=== PATIENT | male | born 1995 | race Caucasian/White ===

== ENCOUNTER → 2017-10-23 | Outpatient (CLI) | payer SELFPAY | END | disposition home or self-care (01) | LOC: LABWHC1 16:22 | PROVIDERS: ATTEND Family Medicine | DX: Z13.88 Encounter for screening for disorder due to exposure to contaminants (principal) | CPT/HCPCS: 36415; 83655 ==

== ENCOUNTER 2018-08-25 16:49 | Emergency (ER) | payer OTHER ==
[2018-08-25 17:44] VITALS: BP 134/76; PULSE 69; RESP 18; TEMP 98.3
--- NOTE | 2018-08-25 18:09 | ED ---
Upper Extremity HPI - General Chief Complaint: Extremity Injury, Upper Stated Complaint: rt hand injury Source: patient, RN notes reviewed, old records reviewed Mode of arrival: ambulatory Limitations: no limitations - History of Present Illness Initial Comments: Patient is a 22-year-old male presents emergency department today for evaluation for right hand pain. Patient ports that he had his hand smashed between a dryer in the wall while moving it downstairs. Patient reports he is right-handed. He complains of pain over his fourth and fifth metacarpal. Patient states painful for him to make him full fist. He states is normal sensation distal fingers Patient denies any elbow pain. He denies any lacerations over the hand. - Related Data Previous Rx's Medication Instructions Recorded Ibuprofen [Motrin] 600 mg PO Q8HR PRN #20 tab 08/25/18 Allergies Allergy/AdvReac Type Severity Reaction Status Date / Time No Known Allergies Allergy Verified 08/25/18 17:44 Review of Systems ROS Statement: Those systems with pertinent positive or pertinent negative responses have been documented in the HPI. ROS Other: All systems not noted in ROS Statement are negative. Past Medical History Past Medical History: No Reported History History of Any Multi-Drug Resistant Organisms: None Reported Past Surgical History: No Surgical Hx Reported Past Psychological History: No Psychological Hx Reported Smoking Status: Never smoker Past Alcohol Use History: None Reported Past Drug Use History: None Reported General Exam - General Exam Comments Initial Comments: This is a 22-year-old male. Alert and oriented. No distress. Limitations: no limitations General appearance: alert, in no apparent distress Head exam: Present: atraumatic, normocephalic, normal inspection Eye exam: Present: normal appearance, PERRL, EOMI. Absent: scleral icterus, conjunctival injection, periorbital swelling ENT exam: Present: normal exam, mucous membranes moist Neck exam: Present: normal inspection. Absent: tenderness, meningismus, lymphadenopathy Respiratory exam: Present: normal lung sounds bilaterally. Absent: respiratory distress, wheezes, rales, rhonchi, stridor Cardiovascular Exam: Present: regular rate, normal rhythm, normal heart sounds. Absent: systolic murmur, diastolic murmur, rubs, gallop, clicks GI/Abdominal exam: Present: soft, normal bowel sounds. Absent: distended, tenderness, guarding, rebound, rigid Extremities exam: Present: normal inspection, full ROM, normal capillary refill. Absent: tenderness, pedal edema, joint swelling, calf tenderness Right Upper Arm exam: Present: normal inspection, full ROM Elbow exam: Present: normal inspection, full ROM Forearm Wrist exam: Present: normal inspection, full ROM Hand Wrist exam: Present: tenderness, swelling (Patient has tenderness and swelling over the fourth metacarpal.). Absent: normal inspection Back exam: Present: normal inspection Neurological exam: Present: alert, oriented X3, CN II-XII intact Psychiatric exam: Present: normal affect, normal mood Skin exam: Present: warm, dry, intact, normal color. Absent: rash Course Vital Signs 08/25/18 17:42 Temperature 98.3 F Pulse Rate 69 Respiratory 18 Rate Blood Pressure 134/76 O2 Sat by Pulse 99 Oximetry Medical Decision Making - Medical Decision Making 22-year-old male today for evaluation for right hand pain and swelling after smashing his hand within the wall and a dryer he was caring. Patient's x-ray was reviewed and negative for any acute process. He does have significant soft tissue swelling. We'll discharge Patient on antiplatelet her medicine Christiano wrap and advised close follow-up with primary care doctor. Return parameters were discussed. - Radiology Data Radiology results: report reviewed X-ray of the hand shows no acute process of her hand. Disposition Clinical Impression: Hand contusion Disposition: HOME SELF-CARE Condition: Good Instructions (If sedation given, give patient instructions): Hand Sprain (ED), Contusion in Adults (ED) Additional Instructions: Follow-up with primary care physician. Return to emergency department if any alarming signs or symptoms occur. Prescriptions: Ibuprofen [Motrin] 600 mg PO Q8HR PRN #20 tab PRN Reason: Pain Is patient prescribed a controlled substance at d/c from ED?: No Referrals: None,Stated [Primary Care Provider] - 1-2 days Tony Zazueta MD [STAFF PHYSICIAN] - 1-2 days Time of Disposition: 19:06
--- NOTE | 2018-08-25 18:53 | XR ---
PROCEDURE: XR hand complete RT - 3V DATE AND TIME: 08/25/2018 6:21 PM CLINICAL INDICATION: PHH; Pain TECHNIQUE: Department protocol COMPARISON: None FINDINGS: There is no fracture or malalignment. The soft tissues are unremarkable. IMPRESSION: NO ACUTE PROCESS.
[2018-08-25] MEDS ORDERED: IBUPROFEN 600 MG TAB PO STA (19:07)
== END 2018-08-25 19:26 | disposition home or self-care (01) ==
LOC: EC 16:49
DX: S60.221A Contusion of right hand, initial encounter (principal); W22.8XXA Striking against or struck by other objects, initial encounter; Y93.89 Activity, other specified
CPT/HCPCS: 99284

== ENCOUNTER 2018-11-26 13:56 | Emergency (ER) | payer OTHER ==
[2018-11-26] MEDS ORDERED: DIPH,PERTUS(ACELL)TETVAC-LF 0.5 ML VIAL IM ONE (14:17)
--- NOTE | 2018-11-26 14:22 | ED ---
General Adult HPI - General Chief complaint: Extremity Injury, Upper Stated complaint: infected finger Time Seen by Provider: 11/26/18 14:10 Source: patient Mode of arrival: ambulatory Limitations: no limitations - History of Present Illness Initial comments: Patient is a 22-year-old male presents emergency Department with a chief complaint of a swollen finger. Patient reports he cut his right second digit at the PIP joint one week ago and did not seek medical treatment. Patient reports the finger has been gradually swelling in the region. She does ago patient reports he accidentally hit the injured area and reopened the wound. 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 Patient reports limited range of motion due to swelling and tenderness with palpation. Patient reports today he developed slight numbness and tingling. Patient denies fevers or chills. Patient is unaware of his tetanus status. - Related Data Previous Rx's Medication Instructions Recorded Ibuprofen [Motrin] 600 mg PO Q8HR PRN #20 tab 08/25/18 Sulfamethox-Tmp 800-160Mg [Bactrim 1 each PO Q12HR #20 tab 11/26/18 Ds] Allergies Allergy/AdvReac Type Severity Reaction Status Date / Time No Known Allergies Allergy Verified 08/25/18 17:44 Review of Systems ROS Statement: Those systems with pertinent positive or pertinent negative responses have been documented in the HPI. ROS Other: All systems not noted in ROS Statement are negative. Past Medical History Past Medical History: No Reported History History of Any Multi-Drug Resistant Organisms: None Reported Past Surgical History: No Surgical Hx Reported Past Psychological History: No Psychological Hx Reported Smoking Status: Never smoker Past Alcohol Use History: None Reported Past Drug Use History: None Reported General Exam - General Exam Comments Initial Comments: General: Well-developed well-nourished distress HEENT: Normocephalic/atraumatic, PERLL, pharynx erythema, swallowing well, EAC no erythema, no exudates, TM clear, no cervical lymph nodes Neck: Supple, nontender, trachea midline Chest/Lungs: Normal respirations, no signs of respiratory distress clear to auscultation bilaterally no wheezes, rales, rhonchi Cardiac: Regular rate and rhythm, normal S1-S2, no murmurs rubs or gallops Abdomen/GI: Soft nontender, bowel sounds equal or quadrant x4, no guarding, no rebound no CVA tenderness Musculoskeletal: Tenderness at the PIP of the right second digit, healing laceration site measuring approximately 1 cm, local edema at the site of injury, erythema, no discharge, limited range of motion due to swelling and tenderness, normal capillary refill, +2 ulnar and radial pulses bilaterally. Skin: Warmth, no rashes or lesions, no cyanosis or diaphoresis Neurologic: AAO x 3, CN 2-12 intact, Psychiatric: Mood and affect normal, judgment normal Limitations: no limitations Course Vital Signs 11/26/18 14:03 Temperature 98.2 F Pulse Rate 73 Respiratory 18 Rate Blood Pressure 129/73 O2 Sat by Pulse 99 Oximetry Medical Decision Making - Lab Data Result diagrams: 11/26/18 14:50 11/26/18 14:50 Lab Results 11/26/18 11/26/18 Range/Units 14:50 14:50 WBC 6.1 (3.8-10.6) k/uL RBC 4.64 (4.30-5.90) m/uL Hgb 14.7 (13.0-17.5) gm/dL Hct 41.5 (39.0-53.0) % MCV 89.4 (80.0-100.0) fL MCH 31.6 (25.0-35.0) pg MCHC 35.4 (31.0-37.0) g/dL RDW 14.4 (11.5-15.5) % Plt Count 226 (150-450) k/uL Sodium 140 (137-145) mmol/L Potassium 4.0 (3.5-5.1) mmol/L Chloride 104 (98-107) mmol/L Carbon Dioxide 25 (22-30) mmol/L Anion Gap 11 mmol/L BUN 14 (9-20) mg/dL Creatinine 0.89 (0.66-1.25) mg/dL Est GFR (CKD-EPI)AfAm >90 (>60 ml/min/1.73 sqM) Est GFR (CKD-EPI)NonAf >90 (>60 ml/min/1.73 sqM) Glucose 97 (74-99) mg/dL Calcium 9.6 (8.4-10.2) mg/dL Total Bilirubin 0.8 (0.2-1.3) mg/dL AST 24 (17-59) U/L ALT 23 (21-72) U/L Alkaline Phosphatase 79 (38-126) U/L Total Protein 7.7 (6.3-8.2) g/dL Albumin 4.8 (3.5-5.0) g/dL Disposition Clinical Impression: Infected finger laceration Disposition: HOME SELF-CARE Condition: Stable Instructions (If sedation given, give patient instructions): Laceration (DC), Care For Your Stitches (DC) Additional Instructions: Please take prescribed medication as directed. Please follow with primary care. Please return to emergency department if symptoms worsen. Prescriptions: Sulfamethox-Tmp 800-160Mg [Bactrim Ds] 1 each PO Q12HR #20 tab Is patient prescribed a controlled substance at d/c from ED?: No Referrals: None,Stated [Primary Care Provider] - 1-2 days Time of Disposition: 15:42
[2018-11-26] MEDS ORDERED: KETOROLAC 30 MG/ML 1 ML VIAL IVP STA (14:38)
--- NOTE | 2018-11-26 14:40 | XR ---
EXAMINATION TYPE: XR hand limited RT DATE OF EXAM: 11/26/2018 CLINICAL HISTORY: Tenderness and swelling of the distal right second finger with recent laceration. TECHNIQUE: Frontal and lateral images of the right hand are obtained. COMPARISON: 08/25/2018 FINDINGS: There is no acute fracture/dislocation evident in the right hand. The joint spaces in the right hand appear within normal limits. The overlying soft tissues demonstrate circumferential soft tissue swelling of the second digit. Punctate rounded 1 mm density overlies the proximal right second middle phalanx on the AP view but is not seen on the lateral view. IMPRESSION: 1. No acute fracture or dislocation in the right hand. 2. Circumferential soft tissue swelling is seen of the second digit. 3. Punctate 1 mm rounded radiopaque density overlies the proximal second phalanx on the frontal view only. This is not redemonstrated on the lateral view. Correlate for laceration site and possible fore ign body.
[2018-11-26 15:05] LABS: ALT 23 U/L (21-72); AST 24 U/L (17-59); African American GFR (CKD) >90 (>60 ml/min/1.73 sqM); Albumin 4.8 g/dL (3.5-5.0); Alkaline Phosphatase 79 U/L (38-126); Anion Gap 11 mmol/L; Blood Urea Nitrogen 14 mg/dL (9-20); Calcium 9.6 mg/dL (8.4-10.2); Carbon Dioxide 25 mmol/L (22-30); Chloride 104 mmol/L (98-107); Glucose 97 mg/dL (74-99); Sodium 140 mmol/L (137-145); Total Bilirubin 0.8 mg/dL (0.2-1.3); Total Protein 7.7 g/dL (6.3-8.2)
[2018-11-26 15:06] LABS: HCT 41.5 % (39.0-53.0); HGB 14.7 gm/dL (13.0-17.5); MCH 31.6 pg (25.0-35.0); MCHC 35.4 g/dL (31.0-37.0); MCV 89.4 fL (80.0-100.0); Mean Platelet Volume 7.4; Platelet Count 226 k/uL (150-450); RBC 4.64 m/uL (4.30-5.90); RDW 14.4 % (11.5-15.5); WBC 6.1 k/uL (3.8-10.6)
[2018-11-26 16:21] VITALS: BP 124/75; PULSE 82; RESP 187; TEMP 98.3
== END 2018-11-26 16:21 | disposition home or self-care (01) ==
LOC: EC 13:56
DX: L08.9 Local infection of the skin and subcutaneous tissue, unspecified (principal); S61.210A Laceration without foreign body of right index finger without damage to nail, initial encounter; W26.9XXA Contact with unspecified sharp object(s), initial encounter; Y92.009 Unspecified place in unspecified non-institutional (private) residence as the place of occurrence of the external cause
CPT/HCPCS: 36415; 80053; 85027; 87040; 73120; 90715; 99283; 96365; 96375; 90471; J0690; J1885